=== PATIENT | male | born 1970 | race Caucasian/White ===

== ENCOUNTER 2017-02-26 07:19 | Inpatient (IN) | payer BC, OTHER ==
[2017-02-07 11:52] VITALS: BMI 28.0
[2017-02-07 12:06] LABS: BASO % 0.9 %; COMPLETE YES; HEMATOCRIT 56.2 % (42-52); IG% 0.2 %; LYMPH % 15.5 %; LYMPH ABS # 1.81 K/uL (1.2-3.4); MEAN CELL VOLUME 90.1 fL (80-100); MEAN CORPUSCULAR HEMOGLOBIN 32.1 pg (25-34); MEAN CORPUSCULAR HGB CONC 35.6 g/dl (32-36); MEAN PLATELET VOLUME 9.5 fL (7.4-10.4); MONO % 8.8 %; NEUT % 71.6 %; PLATELET COUNT 204 K/uL (130-400); RED BLOOD COUNT 6.24 M/uL (4.7-6.1); WHITE BLOOD COUNT 11.66 K/uL (4.8-10.8)
[2017-02-07 12:16] LABS: INR 1.1 (0.9-1.1); PARTIAL THROMBOPLASTIN RATIO 1.2; PROTHROMBIN TIME (PATIENT) 11.6 SECONDS (9.0-12.0)
--- NOTE | 2017-02-07 12:17 | PAT Medication Instructions ---
Service Date Feb 07, 2017. Current Home Medication List Doxepin (Sinequan), 50 MG PO HS Fish Oil (Delia-3), 1 CAP PO QAM Hydrocodone/Acetaminophen 5MG/325MG (Ruby 5MG/325MG), 1 TABLET PO Q6 PRN for Pain Omeprazole (Prilosec), 20 MG PO QAM Sertraline Hcl (Zoloft), 50 MG PO QAM Tramadol (Ultram), 50 MG PO Q8H PRN for Pain Medication Instructions For Your Scheduled Surgery - Hold the following medications 2 weeks prior to surgery: Fish Oil (Delia-3), 1 CAP PO QAM - Take the following medications the morning of surgery with a sip of water: Tramadol (Ultram), 50 MG PO Q8H PRN for Pain (okay to take up to 4 hours prior to surgery if needed) Hydrocodone/Acetaminophen 5MG/325MG (Ruby 5MG/325MG), 1 TABLET PO Q6 PRN for Pain (okay to take up to 4 hours prior to surgery if needed) Omeprazole (Prilosec), 20 MG PO QAM Sertraline Hcl (Zoloft), 50 MG PO QAM - Take the following medications as scheduled the night before surgery: Tramadol (Ultram), 50 MG PO Q8H PRN for Pain (if needed) Hydrocodone/Acetaminophen 5MG/325MG (Ruby 5MG/325MG), 1 TABLET PO Q6 PRN for Pain (if needed) Doxepin (Sinequan), 50 MG PO HS If you have any questions please call us at [phone] or [phone] or [phone]
[2017-02-07 12:51] LABS: ESTIMATED AVERAGE GLUCOSE 97 mg/dl; HA1C FLAG Normal (Normal)
--- NOTE | 2017-02-07 12:54 | DIAGNOSTIC IMAGING REPORT ---
CHEST PREADMISSION(PA/LAT) CLINICAL HISTORY: PAT preoperative evaluation COMPARISON STUDY: No previous studies for comparison. FINDINGS: The bones soft tissues and hemidiaphragms are normal. The cardiomediastinal silhouette is normal. The lungs are clear. The pulmonary vasculature is normal. IMPRESSION: Negative chest. The above report was generated using voice recognition software. It may contain grammatical, syntax or spelling errors. Electronically signed by: Vin Singh M.D. 02/07/2017 12:53 PM Dictated Date/Time: 02/07/2017 12:52 PM
[2017-02-07 13:31] LABS: URINE APPEARANCE CLEAR (CLEAR); URINE BILIRUBIN NEG (NEG); URINE COLOR YELLOW; URINE EPITHELIAL CELL AUTO 0-5 /lpf (0-5); URINE NITRITE NEG (NEG); URINE PH 5.5 (4.5-7.5); URINE SPECIFIC GRAVITY 1.011 (1.000-1.030); UROBILINOGEN NEG (NEG); ZZUR CULT IF INDIC CLEAN CATCH NO
[2017-02-07 13:33] LABS: MANUAL MICROSCOPIC REQUIRED? NO; REVIEW REQ? NO
[2017-02-07 14:28] LABS: BUN/CREATININE RATIO 12.8 (10-20); CALCIUM 9.1 mg/dl (8.5-10.1); CREATININE 1.2 mg/dl (0.60-1.40); POTASSIUM 4.9 mmol/L (3.5-5.1)
--- NOTE | 2017-02-25 19:36 | HISTORY & PHYSICAL EXAMINATION ---
DATE OF ADMISSION: 02/26/2017 CHIEF COMPLAINT: Chronic right shoulder pain. HISTORY OF PRESENT ILLNESS: This is a 46-year-old male patient of Dr. Cornelius'fernanda complaining of chronic right shoulder pain status shoulder surgery in 1993. His pain is progressively getting worse and he failed conservative treatment over the past year. It is affecting his ADLs. MRI has confirmed osteoarthritis in the shoulder and the distal clavicle and the patient wishes to proceed with a right shoulder resurfacing hemiarthroplasty versus total shoulder arthroplasty and distal clavicle excision. PAST MEDICAL HISTORY: Acid reflux. SOCIAL HISTORY: He is a 1/2 pack per day smoker x15 years. Nondrinker. PAST SURGICAL HISTORY: Right surgery x3, left shoulder x1. REVIEW OF SYSTEMS: The patient complains of chronic right shoulder pain status post previous surgeries. Otherwise, denies any shortness of breath, chest pain, nausea, vomiting or joint complaints. FAMILY HISTORY: Noncontributory. MEDICATIONS: Omeprazole 20 mg daily, doxepin 50 mg 2 capsules at bedtime, Zoloft 50 mg daily, fish oil daily, tramadol as needed, [place] as needed. ALLERGIES: INCLUDE SULFA DRUGS. PHYSICAL EXAMINATION: GENERAL: Well-developed, well-nourished 46-year-old male in no acute distress. He is alert and oriented x3 and pleasant. HEENT: Normocephalic, atraumatic. Extraocular motions are intact. Pupils are equal and reactive to light. HEART: Regular rate and rhythm. No murmurs appreciated. LUNGS: Clear. ABDOMEN: Soft and nontender. Bowel sounds are present. EXTREMITIES: Right shoulder, he has positive AC joint tenderness. He has full range of motion with pain and crepitation. He has 4+/5 strength. NEUROLOGIC: Neurovascularly, he is intact in his right upper extremity. DIAGNOSES: Right shoulder osteoarthritis and AC joint arthritis. He also has a history of acid reflux. PLAN: The patient was advised of his diagnosis. Indications, risks, benefits, and postop course have all been reviewed. The patient wishes to proceed with a right shoulder resurfacing hemiarthroplasty versus a total shoulder arthroplasty with a distal clavicle excision. Necessary consent forms, preoperative testing and clearances will be obtained.
[~2017-02-26] VITALS: Ht 172.7 cm; Wt 84.7 kg
[~2017-02-26 07:19] MED LIST: ACETAMINOPHEN 500 MG TAB PO SCH; BUPIVACAINE 0.25% 30 ML VIAL ONE; CEFAZOLIN 2000MG IV PUSH 10 ML IV SCH; DEXAMETHASONE 4 MG TAB PO SCH; DEXAMETHASONE SOD INJ 4 MG/ML VIAL ONE; DOXE50CA3 PO; EpINEphrine INJ 1MG/ML AMP 1 MG/ML AMP ONE; FAMOTIDINE 20 MG TAB PO SCH; GABAPENTIN 300 MG CAP PO SCH; HYDR-5688 PO; LACTATED RINGER'S 1000ML 1,000 ML IV SCH; LACTATED RINGER'S 1000ML IV SCH; METOCLOPRAMIDE HCL 10 MG TAB PO SCH; OMEG10007 PO; PRLSR20 PO; SERT50TA PO; TRAM-10 PO; VANCOMYCIN INJ 1,250 MG in SODIUM CHLORIDE 0.9% 250ML 250 ML IV SCH
[2017-02-26 07:58] VITALS: BP 112/87; PULSE 94; TEMP 36.6; O2SAT 94; Ht 172.7 cm; Wt 84.7 kg
--- NOTE | 2017-02-26 09:15 | History & Physical Bridge Note ---
H&P Re-Evaluation Bridge Note: I have examined the patient, reviewed the History & Physical and in the interval since the performance of the History & Physical I have noted the following changes of clinical significance: No changes noted
[2017-02-26] MEDS ORDERED: PROPOFOL IV EMULSION 10 MG/ML 20 ML VIAL IV ONE (09:26)
[2017-02-26] MEDS ORDERED: FENTANYL CITRATE INJ 50 MCG/1 ML 2 ML VIAL ONE ×3 (09:26→14:21)
[2017-02-26] MEDS ORDERED: MIDAZOLAM HCL 1 MG/ML 2ML VIAL ONE (09:26)
[2017-02-26] MEDS ORDERED: LIDOCAINE HCL 2% 2 ML VIAL (20MG/ML) ONE (09:26)
[2017-02-26] MEDS ORDERED: BACITRACIN 50000 UNIT VIAL ONE ×2 (09:45→13:51)
[2017-02-26] MEDS ORDERED: EpINEphrine HCL INJ 1 MG/ML 5ML SYRINGE ONE (09:45)
[2017-02-26] MEDS ORDERED: ATROPINE SULFATE 0.1 MG/ML 5ML SYR IV PRN (10:15)
[2017-02-26] MEDS ORDERED: PROMETHAZINE HCL INJ 6.25 MG in SODIUM CHLORIDE 0.9% 50ML 50 ML IV PRN (10:15)
[2017-02-26] MEDS ORDERED: ONDANSETRON INJ 2 MG/ML 2 ML VIAL IV PRN ×2 (10:15→14:15)
[2017-02-26] MEDS ORDERED: EpHEDrine SULFATE INJ 50 MG/ML AMP IV PRN (10:15)
[2017-02-26] MEDS ORDERED: GLYCOPYRROLATE INJ 0.2 MG/ML VIAL ONE (13:10)
[2017-02-26] MEDS ORDERED: DEXAMETHASONE SOD INJ 4 MG/ML VIAL ONE (13:10)
[2017-02-26] MEDS ORDERED: NEOSTIGMINE METHYLSULFATE 5 MG/5 ML SYR ONE ×2 (13:10→14:25)
[2017-02-26] MEDS ORDERED: ROCURONIUM BROMIDE 10 MG/ML 5 ML VIAL IV ONE ×2 (13:10→13:29)
[2017-02-26] MEDS ORDERED: ONDANSETRON INJ 2 MG/ML 2 ML VIAL ONE ×2 (13:10→13:36)
[2017-02-26] MEDS ORDERED: ALUMINUM/MAGNESIUM SUSP 30 ML UDC PO PRN (14:15)
[2017-02-26] MEDS ORDERED: BISACODYL 10 MG SUPP PR PRN (14:15)
[2017-02-26] MEDS ORDERED: MAGNESIUM HYDROXIDE SUSP 30 ML UDC PO PRN (14:15)
[2017-02-26] MEDS ORDERED: MoRPHine SULFATE 2 MG/ML CARP IV PRN (14:15)
[2017-02-26] MEDS: FENTANYL CITRATE INJ 50 MCG/1 ML 2 ML VIAL IV PRN ×4 (15:04→15:22)
--- NOTE | 2017-02-26 15:18 | [facility] Post Operative Brief Note ---
Immediate Operative Summary Operative Date Feb 26, 2017. Pre-Operative Diagnosis Right Shoulder Degnerative Joint Disease glenohumera and acj,hx of Latissimus dorsi transfer for non repairable ratator cuff Post-Operative Diagnosis Same as preop,biceps tendinopathy Procedure(s) Performed Right Total Shoulder with head resurfacing and Glenoid Inlay Cemented; Biceps Tenodesis; Distal Clavicle Excision Surgeon Dr. Cornelius Sail Lay Out Worker Surgeon(s) Vin White PA-C Estimated Blood Loss 275 ml Findings severe djd glenohumeral and acj with chronic biceps tendinopathy and posterior superior labral tear Specimens A. Right Distal Calvicle Drains 2 hemovac Anesthesia general and regional Complication(s) None Disposition Recovery Room / PACU
--- NOTE | 2017-02-26 15:25 | DIAGNOSTIC IMAGING REPORT ---
R SHOULDER MIN 2 VIEWS ROUTINE CLINICAL HISTORY: Post shoulder surgery COMPARISON: None. DISCUSSION: There are postsurgical changes of a right shoulder hemiarthroplasty. There is no dislocation. Overlying skin dagoberto and surgical drains are evident. There is air within the soft tissues consistent with recent surgery. IMPRESSION: Postsurgical changes of a right shoulder hemiarthroplasty. No evidence of dislocation. Electronically signed by: Hu Carvalho M.D. 02/26/2017 3:24 PM Dictated Date/Time: 02/26/2017 3:23 PM
[2017-02-26] MEDS ORDERED: MoRPHine SULFATE 10 MG/ML CARP/VIAL IV PRN (15:30)
--- NOTE | 2017-02-26 15:41 | Anesthesiology Progress Note ---
Anesthesia Post Op Note Date & Time Feb 26, 2017 at 15:40 Vital Signs Pain Intensity: 6.0 Vital Signs Past 12 Hours Date Time Temp Pulse Resp B/P (MAP) Pulse Ox O2 Delivery O2 Flow Rate FiO2 02/26/17 15:31 37.2 02/26/17 15:28 109 12 02/26/17 15:28 110 12 93 02/26/17 15:26 107/67 02/26/17 15:23 110 17 02/26/17 15:23 109 17 93 02/26/17 15:21 108/66 02/26/17 15:18 112 18 02/26/17 15:18 112 18 92 02/26/17 15:17 112 20 02/26/17 15:17 112 20 92 02/26/17 15:16 116/82 02/26/17 15:12 109 25 90 02/26/17 15:12 109 25 02/26/17 15:11 102/84 02/26/17 15:07 110 19 02/26/17 15:07 110 19 91 02/26/17 15:06 100/73 02/26/17 15:02 104 20 92 02/26/17 15:02 105 20 02/26/17 15:01 121/76 02/26/17 14:57 108 22 92 02/26/17 14:57 107 22 02/26/17 14:56 101/74 02/26/17 14:54 102 17 93 02/26/17 14:54 102 17 02/26/17 14:51 121/70 02/26/17 14:49 103 19 02/26/17 14:49 103 19 93 02/26/17 14:46 111/71 02/26/17 14:45 121/72 02/26/17 14:44 96 16 02/26/17 14:44 36.5 94 14 121/72 96 Nasal Cannula 2 02/26/17 14:44 96 16 92 02/26/17 07:58 36.6 94 20 112/87 94 Room Air Notes Mental Status: alert / awake / arousable, participated in evaluation Pt Amnestic to Procedure: Yes Nausea / Vomiting: adequately controlled Pain: adequately controlled Airway Patency, RR, SpO2: stable & adequate BP & HR: stable & adequate Hydration State: stable & adequate Anesthetic Complications: no major complications apparent Block working well in pacu
[2017-02-26 16:00] VITALS: BP 102/68; TEMP 37.2; O2SAT 96
[2017-02-26 16:30] VITALS: BP 124/67; PULSE 113; TEMP 37; O2SAT 95
--- NOTE | 2017-02-26 16:36 | OPERATIVE REPORT ---
DATE OF OPERATION: 02/26/2017 HISTORY OF PRESENT ILLNESS: The patient is a 46-year-old male who presents with chronic osteoarthritis in his right shoulder. He has failed conservative management. He has been bone on bone for some time now and now presents for definitive treatment. He does heavy labor, self-employed construction company. He has history of chronic unrepairable rotator cuff for which he had to have a latissimus dorsi transfer. He had a successful transfer and improved function in his shoulder although he does not have normal function. He still lives an active lifestyle and still does fairly heavy lifting for his job and recreationally. His radiographs demonstrate that he has AC joint arthritis, bone on bone, some inferior AC joint spur that may be causing impingement. He has a [id number] in the glenohumeral joint, appears to be more concentric wear pattern on axillary view and has a fairly large inferior humeral osteophytes consistent with osteoarthritis. PREOPERATIVE DIAGNOSIS: End-stage glenohumeral and AC joint osteoarthritis, right shoulder. History of latissimus dorsi transfer for nonrepairable rotator cuff tear. POSTOPERATIVE DIAGNOSES: Same including biceps tendinopathy and posterior glenoid labral tear. PROCEDURE: Right total shoulder replacement with a humeral head resurface and an inlay cemented glenoid with biceps tenodesis including labral debridement and distal clavicle excision. SURGEON: Dr. Cornelius. SUPERVISORY TRAINING SPECIALIST: Vin White PA-C. ANESTHESIA: Regional block and general. OPERATIVE PROCEDURE: The patient was taken to the operating room, anesthetized with regional block and general anesthetic. He was positioned on the operating table in 40 degree beach chair position with a towel roll in the medial border of his right scapula. He was translated to right side of the bed, so his shoulder could be manipulated off the bed as necessary. His head was placed on a foam headrest. She had protective eyewear placed. His right shoulder was sterilely prepped and draped with ChloraPrep. He did have preoperative antibiotics including Ancef and vancomycin. He had a history of minor MRSA injection on his face that was resolved completely with antibiotics. His right shoulder exam demonstrated he had 120 degrees of forward elevation, about 15 to close to 20 degrees of external rotation only and abduction to about 70 degrees. He had [id number] crepitation. He had scars over his latissimus dorsi posteriorly, lateral scar over his shoulder with a saber type scar. His shoulder was approached with an anterior deltopectoral approach. We made a longitudinal incision in the deltopectoral interval. Skin was incised sharply. Subcutaneous flaps were elevated. The cephalic vein was dissected out and retracted laterally with the deltoid. Pectoralis was retracted medially. We dissected down to the clavipectoral fascia which was divided at the lateral margin of the strap muscles and extended up to the CA ligament which was preserved. The bursa over the subscapularis was resected so the subdeltoid adhesions were released to assess the latissimus repair. The subacromial bursa was resected. There was a tenosynovitis in the bicipital groove. This extended down to the pectoralis area. This tenosynovium was opened up and identified intact biceps tendon. The tenosynovium was resected. Biceps was tenodesed to the pectoralis with ibuijo-[id number] #2 FiberWire sutures. We did release the upper centimeter of the pectoralis for inferior exposure. Inspection of the latissimus transfer demonstrated excellent latissimus transfer with complete coverage over the greater tuberosity and it was repaired to the upper subscap, which demonstrated intact repair at that site. There was scar tissue in the rotator interval that was released. The coracohumeral ligament was released. This allowed some increased external rotation to expose the subscapularis better. The circumflex vessels were identified, tied off with silk ties and divided laterally. The muscle fibers of the subscapularis were split at the level of the circumflex vessels, reflected off the inferior capsule with a Kitner elevator and then the blunt Hohmann retractor was placed between the inferior fibers of the subscapularis and the capsule to protect the axillary nerve inferiorly. I placed another blunt Noemi retractor superiorly. We opened up the rotator interval, divided laterally to the lesser tuberosity area. The subscapularis was taken down with a transtendinous incision through the subscap and capsule. We left about a cm of soft tissue on the lesser tuberosity for soft tissue repair. We placed a #1 Vicryl traction suture into the subscapularis tendon. The release was performed subperiosteally down along the neck of the humerus and the humerus was gradually externally rotated exposing the large inferior humeral osteophyte. The humeral head was completely down to eburnated bone. The osteophyte was anterior inferior and extended to posterior aspect of the inferior humeral head. An artist chisel was used to resect the osteophytes with a rongeur. Then we released the capsule off the neck staying on bone and using a small Mariee elevator to release some of the capsule. I then placed a Fukuda retractor into the joint, retracted the humeral head posteriorly, exposed the glenoid and there was a posterior superior glenoid labral tear attached to the biceps tendon which was widened and tendinopathic. Biceps tendon was resected. I resected part of the posterior superior labrum. The glenoid wear pattern was identified as there was still a rim of articular cartilage on the anterior 20% of the glenoid. The posterior glenoid was down to bone. There was a little bit of a posterior wear pattern and there was still some small amount of articular cartilage superiorly, so I felt we should resurface the glenoid in this situation. We chose this particular case to an inlay glenoid due to his weight lifting activities. At this point, I went ahead and released the anterior capsule down to about the 5 o'clock position, released the capsule off the anterior glenoid leaving the labrum intact and then released the rotator interval down to meet that for a 360 degree release of the subscapularis. Then we exposed the humeral head with extension and external rotation again. I went ahead and proceeded with the Arthrosurface HemiCAP procedure. We measured this at 50 x 46 HemiCAP was the best size. Central drill hole was made with the guide, followed by the reamer up to the appropriate depth after the appropriate screw was placed into the head to set the depth of the reaming. We reamed him back to his normal height of the humeral surface. The rimming osteophytes were all excised and the debris from the reaming removed. We then went ahead and prepared the humeral head for the tapered post. All debris was irrigated out and the canal for the tibial post was irrigated. He did have very hard bone, so we did choose to use the tap which was not fully set up but we placed about 50% of the way down into the head. Then we went ahead and placed in the final insertion device which was the 12 mm tapered post with good fixation. Then went ahead and assessed the glenoid again by better retraction humeral head posteriorly. We used a Fukuda retractor for that and the Bankart retractor anteriorly and assessed the glenoid and chose to do an inlay glenoid. When I performed this I resected some of the articular cartilage with a curette to get a true version of the glenoid in the area of the inlay glenoid. Then we used the guide for the guidewire and subsequent reamers were used for the glenoid. We chose the 19 x 20 mm glenoid component. The trial was placed and was satisfactory and then we went ahead and irrigated out the glenoid reamed area copiously and he did have a little more than typical bleeding so we did pack epinephrine soaked sponges in there and allowed some hemostasis for several minutes. Then we mixed the Simplex cement. Then we did previously place several 2 mm drill holes around the reamed out area to enhance cement fixation. After drying the glenoid as best as possible we went ahead and cemented in the glenoid. First we placed the cement into the base of the dried vault of the inlay reamed area. I then used the family law paralegal to pressurize the cement and this helped obtain hemostasis and then we placed the final amount of cement back into the glenoid and then went ahead and used the insertion device on the 19 x 20 mm glenoid component, placed in the appropriate position and set it down to the level of the glenoid, making it flush with the glenoid after appropriate angulation. We cleared all the excess cement and then held the glenoid in place with pressure across the glenoid component until the cement cured completely and it was solidly in place and tested to be solid. Any excess cement around the edge of the implant was debrided and then the joint was irrigated out copiously and then we proceeded to expose the humeral head again and then after the humeral head was irrigated and dried and then the Arthrosurface 50 x 46 HemiCAP was impacted onto the taper post with a tight pressfit. We assessed this after implantation and the head was stable. Then the humerus was reduced to the glenoid and we irrigated out the joint copiously. Then attention was taken to the distal clavicle excision. A transverse incision was made over the AC joint for about 2.5 cm. Skin was incised sharply. The subcutaneous flaps were incised down to the fascia and reflected off the fascia. Electrocautery was used to make an incision transversely across the distal clavicle and then subperiosteal dissection was performed around the distal clavicle to expose 1 cm of distal clavicle. The clavicle had significant degenerative changes of the end surface. 1 cm was resected with an oscillating saw proximally. After irrigation with antibiotic solution again bacitracin the deltotrapezial fascia was repaired with [id number] #2 FiberWire sutures and secure repair was obtained. Then attention was taken back to the joint and this was irrigated out copiously. Then repaired the subscapularis with dual row fixation. I used two 5.5 mm Healicoil double loaded suture anchors for the medial row fixation. The patient had very hard bone and excellent fixation of the anchors. These sutures were placed in a horizontal mattress fashion and the subscapularis was repaired initially with medial row repairing those typing all those sutures down. Then we did lateral soft tissue repair with dzmcft-cu-qoctf #2 FiberWire also repairing the subscapularis to the latissimus dorsi proximally and closing some of the lateral rotator interval. We did this in maximal external rotation which was at 35-40 degrees. Then the sutures from the medial row fixation 4 of those sutures were placed into a 5.5 mm footprint in the hard bone laterally adjacent to the bicipital groove. This screw was tensioned on the footprint after it was fully seated and then the excess sutures were cut. I tested the range of motion was secured through passive range of motion to maximal external rotation with a very secure repair. After further copious irrigation, the pectoralis tendon split was repaired with [id number] #2 FiberWire sutures. Then we placed 2 Hemovac drains deep to deltopectoral interval, 1 posterior under the deltoid and 1 under the conjoined tendon. Then after further irrigation, we repaired the deltopectoral interval with [id number] #1 Vicryl sutures. Then, the subcutaneous tissues were closed with interrupted 2-0 Vicryl and skin was closed with dagoberto. Sterile dressings were applied and the patient had estimated blood loss of 275 mL. KWESI Varghese was my diagnostic assistant. He functioned as diagnostic assistant, assisted in patient positioning, prepping, draping, arm positioning, soft tissue retraction, arm positioning, instrument management throughout the procedure and he assisted in the wound closure and skin closure and will participate in the care of this patient. I attest to the content of the Intraoperative Record and any orders documented therein. Any exception s are noted below.
[2017-02-26 17:00] VITALS: BP 117/73; PULSE 114; TEMP 36.9; O2SAT 95
[2017-02-26] MEDS: D5W AND 1/2NSS + 20MEQ KCL 1,000 ML IV SCH ×2 (17:00→23:30)
[2017-02-26] MEDS: OXYCODONE HCL IR 5 MG TAB (IMMEDIATE RELEASE) PO PRN ×2 (17:11→21:14)
[2017-02-26] MEDS: CEFAZOLIN IV 2,000 MG in SYRINGE 0 ML IV SCH (17:13)
[2017-02-26 18:00] VITALS: BP 113/77; PULSE 120; TEMP 37.5; O2SAT 93
--- NOTE | 2017-02-26 20:46 | INTERNAL MEDICINE CONSULTATION ---
DATE OF CONSULTATION: 02/26/2017 CHIEF COMPLAINT: Status post right shoulder arthroplasty with consult for medical management. HISTORY OF PRESENT ILLNESS: This 46-year-old male with past medical history significant for allergic rhinitis, migraines, generalized anxiety disorder, alcohol abuse in remission status post right shoulder surgery, tolerated the procedure fine was having some pain from surgical site, had some mild headache, no blurred visions, no chest pain, no cough, no shortness of breath, no nausea, no abdominal pain. No feeling of hot or cold. Currently, resting comfortably. ALLERGIES: SULFA ANTIBIOTICS. PAST MEDICAL HISTORY: As mentioned above. PAST SURGICAL HISTORY: Hemorrhoidectomy, left shoulder surgery. MEDICATIONS: The patient is on doxepin 50 mg 2 tablets at bedtime, tramadol 50 mg p.o. q. 6 hours p.r.n., omeprazole 20 mg p.o. daily, sertraline 50 mg p.o. daily, ibuprofen 600 mg every 6 hours p.r.n., calcium plus vitamin D tablet daily, multivitamins 1 tablet daily, fish oil 1200 mg p.o. daily. FAMILY HISTORY: Significant for paternal grandmother had lung cancer. Maternal grandfather and grandmother had alcohol related disorders. SOCIAL HISTORY: Smoked quarter pack a day for 25 years. History of alcohol abuse, was in [facility] in August 2015. No drug abuse. REVIEW OF SYMPTOMS: As per HPI. Rest of review of systems negative. PHYSICAL EXAMINATION: GENERAL: The patient is of moderate build, not in distress. VITAL SIGNS: Temperature 37.2, pulse 114, respiratory rate 19, blood pressure 107/91, oxygen 95%. HEENT: No pallor, no icterus. Pupils equal. NECK: No JVD, no neck masses. CARDIOVASCULAR: S1, S2 heard, regular rate and rhythm, no murmur, no gallop. RESPIRATORY SYSTEM: Clear to auscultation bilaterally. No wheezing, no crackles. ABDOMEN: Soft, bowel sounds present. Nontender. No distention. CENTRAL NERVOUS SYSTEM: Cranial nerves II-XII grossly intact. Nonfocal. EXTREMITIES: Status post right shoulder surgery, dressing and drain intact. No edema seen. LABORATORIES: Unavailable. ASSESSMENT AND PLAN: This is a 46-year-old male status post right shoulder surgery. 1. Status post right shoulder surgery. Further management as per orthopedics. 2. History of generalized anxiety disorder. Continue doxepin, and Zoloft. 3. Gastroesophageal reflux disease. Continue PPI. 4. History of alcoholism, currently in remission. We will monitor for any withdrawal symptoms. 5. Deep venous thrombosis prophylaxis as per orthopedics. DISPOSITION: As per ortho. MTDD
[2017-02-26] MEDS: DOXEPIN HCL 50 MG CAP PO SCH (21:13)
[2017-02-26] MEDS: ACETAMINOPHEN 500 MG TAB PO SCH (21:14)
[2017-02-26] MEDS: MoRPHine SULFATE 4 MG/ML 1 ML CARP\\VIAL IV PRN (23:33)
[2017-02-26 23:44] VITALS: BP 103/68; PULSE 99; TEMP 37.2; O2SAT 92
[2017-02-27] MEDS: CEFAZOLIN IV 2,000 MG in SYRINGE 0 ML IV SCH (02:27)
[2017-02-27] MEDS: OXYCODONE HCL IR 5 MG TAB (IMMEDIATE RELEASE) PO PRN ×5 (02:31→23:59)
[2017-02-27 03:40] VITALS: BP 110/68; PULSE 93; TEMP 36.8; O2SAT 94
[2017-02-27] MEDS: MoRPHine SULFATE 2 MG/ML CARP IV PRN ×2 (03:58→17:10)
[2017-02-27] MEDS: ACETAMINOPHEN 500 MG TAB PO SCH ×3 (05:38→21:36)
[2017-02-27 05:54] LABS: HEMATOCRIT 42.9 % (42-52); MEAN CELL VOLUME 90.1 fL (80-100); MEAN CORPUSCULAR HEMOGLOBIN 31.1 pg (25-34); MEAN CORPUSCULAR HGB CONC 34.5 g/dl (32-36); MEAN PLATELET VOLUME 9.2 fL (7.4-10.4); PLATELET COUNT 204 K/uL (130-400); RED BLOOD COUNT 4.76 M/uL (4.7-6.1); WHITE BLOOD COUNT 16.81 K/uL (4.8-10.8)
[2017-02-27 06:29] LABS: BUN/CREATININE RATIO 11.5 (10-20); CALCIUM 8.1 mg/dl (8.5-10.1); CREATININE 1.09 mg/dl (0.60-1.40); POTASSIUM 4.1 mmol/L (3.5-5.1)
--- NOTE | 2017-02-27 06:49 | Orthopedic Progress Note ---
Orthopedic Progress Note Date of Service Feb 27, 2017. Subjective Post OP Day: 1 Reports: feeling well, pain controlled w PO medications, Denies: complaints, chest pain, SOB, nausea / vomiting, light headedness, calf pain Objective N/V intact, capillary refill less than 2 sec., dressing C/D/I, A&O x3, hemovac drainage (50cc/8 hours) radial/median/ulnar nerves intact, full painless ROM wrist Date Time Temp Pulse Resp B/P (MAP) Pulse Ox O2 Delivery O2 Flow Rate FiO2 02/27/17 03:40 36.8 93 16 110/68 (82) 94 Room Air 02/26/17 23:44 37.2 99 16 103/68 (80) 92 Room Air 02/26/17 23:30 Room Air 02/26/17 18:00 37.5 120 18 113/77 (89) 93 Room Air 02/26/17 17:00 36.9 114 17 117/73 (88) 95 Nasal Cannula 2.0 02/26/17 16:30 37.0 113 17 124/67 (86) 95 Nasal Cannula 2.0 02/26/17 16:00 96 Nasal Cannula 2.0 02/26/17 16:00 37.2 16 102/68 (79) 96 Nasal Cannula 2.0 02/26/17 16:00 96 Nasal Cannula 2.0 02/26/17 15:50 114 19 95 02/26/17 15:50 114 19 02/26/17 15:46 107/71 02/26/17 15:45 112 18 95 02/26/17 15:45 111 18 02/26/17 15:40 113 24 104/73 94 02/26/17 15:40 113 24 02/26/17 15:39 114 23 95 02/26/17 15:39 115 23 02/26/17 15:34 108 14 02/26/17 15:34 109 14 92 02/26/17 15:31 37.2 02/26/17 15:31 113/79 02/26/17 15:29 108 17 02/26/17 15:29 107 17 93 02/26/17 15:28 109 12 02/26/17 15:28 110 12 93 02/26/17 15:26 107/67 02/26/17 15:23 110 17 02/26/17 15:23 109 17 93 02/26/17 15:21 108/66 02/26/17 15:18 112 18 02/26/17 15:18 112 18 92 02/26/17 15:17 112 20 02/26/17 15:17 112 20 92 02/26/17 15:16 116/82 02/26/17 15:12 109 25 90 02/26/17 15:12 109 25 02/26/17 15:11 102/84 02/26/17 15:07 110 19 02/26/17 15:07 110 19 91 02/26/17 15:06 100/73 02/26/17 15:02 104 20 92 02/26/17 15:02 105 20 02/26/17 15:01 121/76 02/26/17 14:57 108 22 92 02/26/17 14:57 107 22 02/26/17 14:56 101/74 02/26/17 14:54 102 17 93 02/26/17 14:54 102 17 02/26/17 14:51 121/70 02/26/17 14:49 103 19 02/26/17 14:49 103 19 93 02/26/17 14:46 111/71 02/26/17 14:45 121/72 02/26/17 14:44 96 16 02/26/17 14:44 36.5 94 14 121/72 96 Nasal Cannula 2 02/26/17 14:44 96 16 92 02/26/17 07:58 36.6 94 20 112/87 94 Room Air Laboratory Results 24 Hours: Test 02/27/17 05:32 Hematocrit 42.9 % Hemoglobin 14.8 g/dL Assessment & Plan Assessment: POD #1 s/p Right total shoulder replacement with a humeral head resurface and an inlay cemented glenoid with biceps tenodesis including labral debridement & distal clavicle excision -PT/OT -plan for d/c home with OPPT when stable, likely Friday -adequate pain control at this time -medical consult noted, appreciate recommendations Discharge Planning Discharge Planning: home Therapy: Physical Therapy
[2017-02-27 07:10] VITALS: BP 90/49; PULSE 93; TEMP 36.7; O2SAT 96
[2017-02-27] MEDS: PANTOprazole SOD 40 MG TAB PO SCH (08:11)
[2017-02-27] MEDS: SERTRALINE HCL 50 MG TAB PO SCH (08:11)
[2017-02-27] MEDS: MULTIVITAMIN TAB PO SCH (08:11)
--- NOTE | 2017-02-27 08:13 | Discharge Instructions ---
Discharge Instructions Date of Service Feb 27, 2017. Admission Reason for Admission: Right Shoulder Degenerative Joint Disease Discharge Discharge Diagnosis / Problem: right total shoulder replacement Discharge Goals Goal(s): Decrease discomfort, Improve function, Increase independence Activity Recommendations Activity Limitations: as noted below . Instructions / Follow-Up Instructions / Follow-Up ACTIVITY RECOMMENDATIONS: SELF CARE INSTRUCTIONS AFTER TOTAL SHOULDER ARTHROPLASTY A. You may do daily exercises as taught in physical therapy while in hospital. No lifting with the operative arm. Please schedule your outpatient physical therapy appointment to begin within 2-3 days after leaving the hospital. Specific restrictions will be written on your physical therapy prescription that is provided to you. B. You are to wear your sling/immobilizer at all times EXCEPT when performing your daily exercises, participating in physical therapy and for hygiene purposes. C. You may perform dry, daily dressing changes. Please keep your incision covered. You may shower 48 hours after surgery. Do not apply soap or any ointment/ lotions directly over incision. Do not soak incision in bath tub/swimming pool. D. You may use ice as needed to operative shoulder. SPECIAL CARE INSTRUCTIONS: MEDICATION INSTRUCTIONS: *It is recommended you take Aspirin 325mg daily for four weeks post-op. VERY IMPORTANT TO READ AND REVIEW A. There are a few signs you need to watch for after you are home. Call [facility] at [phone] if you experience any of the followin. Increased severe shoulder pain. Some pain is expected especially when you exercise. 2. Increased swelling in you shoulder or arm; pain or swelling in either upper extremity. 3. Any fluid drainage from the incision. 4. Shortness of breath or chest pain. B. Please call [facility] at [phone] if you have any questions or concerns about your operation or recovery. C. Call your physician if: 1. Temperature is greater than 101 degrees (F). 2. Pain is not relieved by prescribed pain medications. 3. Increase drainage or redness from incision. 4. Unanswered questions or concerns. FOLLOW UP VISIT: Please call [facility] at [phone] to schedule a follow up appointment with Dr. Cornelius or his PA in 12-14 days from your surgery date. Current Hospital Diet Patient's current hospital diet: Regular Diet Discharge Diet Recommended Diet: Regular Diet Procedures Procedures Performed: Right Total Shoulder with head resurfacing and Glenoid Inlay Cemented; Biceps Tenodesis; Distal Clavicle Excision Pending Studies Studies pending at discharge: no Laboratory Results Hemoglobin A1c Test 02/07/17 11:57 Range/Units Estimated Average Glucose 97 mg/dl Hemoglobin A1c 5.0 4.5-5.6 % Medical Emergencies . Who to Call and When: Medical Emergencies: If at any time you feel your situation is an emergency, please call 911 immediately. . Non-Emergent Contact Non-Emergency issues call your: Primary Care Provider, Surgeon . "Provider Documentation" section prepared by Vin Eagle. . VTE Core Measure Inpt VTE Proph given/why not?: Other Anticoagulation (ASA 325mg po daily x 4 weeks), T.E.D. Stockings, SCD's [place] Drug Monitoring Program Search Results: patient reviewed within database, no issues identified
[2017-02-27] MEDS: D5W AND 1/2NSS + 20MEQ KCL 1,000 ML IV SCH ×2 (10:48→20:53)
[2017-02-27] MEDS: MoRPHine SULFATE 4 MG/ML 1 ML CARP\\VIAL IV PRN ×2 (10:48→21:41)
[2017-02-27 16:01] VITALS: BP 146/72; PULSE 92; TEMP 37; O2SAT 96
--- NOTE | 2017-02-27 17:27 | Progress Note ---
Internal Med Progress Note Date of Service: Feb 27, 2017. Provider Documentation: SUBJECTIVE: resting comfortably has pain in right shoulder moved bowels afebrile no nausea no sob OBJECTIVE: Vital Signs-as noted below Exam: General-alert and oriented. Not in distress ENT-Normal hearing Neck-no neck masses Lungs-CTA b/l no wheezing or crackles Heart-S1 and S2 heard. Regular rate and rhythm, no murmurs Abdomen-Soft Bowel sounds present no tenderness present no distension Extremities-s/p right shoulder surgery dressing and drain intact no erythema Neuro-alert and awake moves extremities Lab data as noted below. ASSESSMENT & PLAN: This is a 46-year-old male status post right shoulder surgery. 1. Status post right shoulder surgery. Further management as per orthopedics. 2. History of generalized anxiety disorder. To Continue doxepin, and Zoloft. 3. Gastroesophageal reflux disease. To Continue PPI. 4. History of alcoholism, currently in remission. We will monitor for any withdrawal symptoms.Stable 5. Deep venous thrombosis prophylaxis as per orthopedics. DISPOSITION: As per ortho. Vital Signs: Date Time Temp Pulse Resp B/P (MAP) Pulse Ox O2 Delivery O2 Flow Rate FiO2 02/27/17 16:01 37.0 92 18 146/72 (96) 96 Room Air 02/27/17 08:30 Room Air 02/27/17 07:10 36.7 93 18 90/49 (63) 96 Room Air 02/27/17 03:40 36.8 93 16 110/68 (82) 94 Room Air 02/26/17 23:44 37.2 99 16 103/68 (80) 92 Room Air 02/26/17 23:30 Room Air 02/26/17 18:00 37.5 120 18 113/77 (89) 93 Room Air Lab Results: Results Past 24 Hours Test 02/27/17 05:32 Range/Units White Blood Count 16.81 4.8-10.8 K/uL Red Blood Count 4.76 4.7-6.1 M/uL Hemoglobin 14.8 14.0-18.0 g/dL Hematocrit 42.9 42-52 % Mean Corpuscular Volume 90.1 80-100 fL Mean Corpuscular Hemoglobin 31.1 25-34 pg Mean Corpuscular Hemoglobin Concent 34.5 32-36 g/dl RDW Standard Deviation 42.4 36.4-46.3 fL RDW Coefficient of Variation 12.9 11.5-14.5 % Platelet Count 204 130-400 K/uL Mean Platelet Volume 9.2 7.4-10.4 fL Sodium Level 137 136-145 mmol/L Potassium Level 4.1 3.5-5.1 mmol/L Chloride Level 104 98-107 mmol/L Carbon Dioxide Level 26 21-32 mmol/L Anion Gap 7.0 3-11 mmol/L Blood Urea Nitrogen 13 7-18 mg/dl Creatinine 1.09 0.60-1.40 mg/dl Est Creatinine Clear Calc Drug Dose 87.8 ml/min Estimated GFR () 92.5 Estimated GFR (Non- 79.8 BUN/Creatinine Ratio 11.5 10-20 Random Glucose 172 70-99 mg/dl Calcium Level 8.1 8.5-10.1 mg/dl
[2017-02-27] MEDS: DOXEPIN HCL 50 MG CAP PO SCH (21:36)
[2017-02-27] MEDS ORDERED: NURSING VERBAL MED ORDER ONE (21:45)
[2017-02-27 23:20] VITALS: BP 129/86; PULSE 89; TEMP 37.1; O2SAT 98
[2017-02-28] MEDS: ACETAMINOPHEN 500 MG TAB PO SCH (05:02)
[2017-02-28] MEDS: OXYCODONE HCL IR 5 MG TAB (IMMEDIATE RELEASE) PO PRN ×2 (05:02→08:57)
[2017-02-28 05:50] LABS: HEMATOCRIT 47.9 % (42-52); MEAN CELL VOLUME 92.1 fL (80-100); MEAN CORPUSCULAR HEMOGLOBIN 31.7 pg (25-34); MEAN CORPUSCULAR HGB CONC 34.4 g/dl (32-36); MEAN PLATELET VOLUME 9.6 fL (7.4-10.4); PLATELET COUNT 209 K/uL (130-400); WHITE BLOOD COUNT 13.55 K/uL (4.8-10.8)
[2017-02-28 06:16] LABS: BUN/CREATININE RATIO 10.8 (10-20); CALCIUM 8.6 mg/dl (8.5-10.1); CREATININE 1.09 mg/dl (0.60-1.40); POTASSIUM 3.7 mmol/L (3.5-5.1)
--- NOTE | 2017-02-28 06:40 | Orthopedic Progress Note ---
Orthopedic Progress Note Date of Service Feb 28, 2017. Subjective Post OP Day: 2 Reports: feeling well, Denies: complaints, chest pain, SOB, nausea / vomiting, light headedness, calf pain, pain controlled w PO medications, using [employer] Objective N/V intact, capillary refill less than 2 sec., incision C/D/I, A&O x3 Date Time Temp Pulse Resp B/P (MAP) Pulse Ox O2 Delivery O2 Flow Rate FiO2 02/27/17 23:30 Room Air 02/27/17 23:20 37.1 89 16 129/86 (100) 98 Room Air 02/27/17 16:01 37.0 92 18 146/72 (96) 96 Room Air 02/27/17 15:15 Room Air 02/27/17 08:30 Room Air 02/27/17 07:10 36.7 93 18 90/49 (63) 96 Room Air Laboratory Results 24 Hours: Test 02/28/17 05:07 Hematocrit 47.9 % Hemoglobin 16.5 g/dL Assessment & Plan Assessment: POD #2 s/p Right total shoulder replacement with a humeral head resurface and an inlay cemented glenoid with biceps tenodesis including labral debridement & distal clavicle excision -PT/OT -plan for d/c home with OPPT when stable, likely after PT today -adequate pain control at this time -medical consult noted, appreciate recommendations Discharge Planning Discharge Planning: home Therapy: Physical Therapy
[2017-02-28] MEDS ORDERED: RXC5 PO (06:43)
[2017-02-28] MEDS ORDERED: ACET-24 PO (06:43)
[2017-02-28] MEDS ORDERED: ONDA8TAB6 PO (06:43)
[2017-02-28 07:14] VITALS: BP 123/80; PULSE 92; TEMP 36.9; O2SAT 96
[2017-02-28] MEDS: SERTRALINE HCL 50 MG TAB PO SCH (08:56)
[2017-02-28] MEDS: PANTOprazole SOD 40 MG TAB PO SCH (08:56)
[2017-02-28] MEDS: MULTIVITAMIN TAB PO SCH (08:57)
[2017-02-28 09:51] VITALS: BP 123/80; PULSE 92; TEMP 36.9; O2SAT 96
== END 2017-02-28 11:00 | disposition home or self-care (01) | DRG 483 ==
LOC: C.ACU 07:19 → C.3E 09:16 → ENRESERV 15:30
PROVIDERS: ADMIT Orthopaedic Surgery Sports Medicine; ATTEND Orthopaedic Surgery Sports Medicine
PROC: 0RRJ0J7 Replacement of Right Shoulder Joint with Synthetic Substitute, Glenoid Surface, Open Approach (ICD-10-PCS; principal; 2017-02-26 10:00)
DX: M19.011 Primary osteoarthritis, right shoulder (principal); K21.9 Gastro-esophageal reflux disease without esophagitis; F17.200 Nicotine dependence, unspecified, uncomplicated